=== PATIENT | female | born 1995 | race Caucasian/White ===

== ENCOUNTER 2017-02-13 07:12 | Day surgery (SDC) | payer OTHER ==
[~2017-02-13] VITALS: Ht 160 cm; Wt 60.6 kg
[2017-02-13 07:58] VITALS: Ht 160 cm; Wt 60.6 kg
[2017-02-13] MEDS ORDERED: PROPOFOL 40 ML ONE (08:27)
[2017-02-13] MEDS ORDERED: LIDOCAINE 2% (SDV) 5 ML INJ ONE (08:27)
[2017-02-13] MEDS ORDERED: MIDAZOLAM 1 MG/ML 2 ML INJ ONE (08:27)
[2017-02-13 08:40] VITALS: BP 126/78; PULSE 73; RESP 16
--- NOTE | 2017-02-13 09:21 | OPPN ---
Date/Time of Note Date/Time of Note DATE: 02/13/17 TIME: 09:19 Operative Report Preoperative Diagnosis Rectal bleeding Change in bowel habit Postoperative Diagnosis Internal hemorrhoid Operation/Procedure Performed Colonoscopy Provider: KIRK PASCUAL MD Anesthesia Type: MAC Estimated blood loss: none Transfusion Required: no Specimen: none Grafts/Implants: none Complications: no KIRK PASCUAL MD Feb 13, 2017 09:21
[2017-02-13 09:41] VITALS: BP 123/65; PULSE 72; RESP 14
--- NOTE | 2017-02-13 11:18 | GILP ---
DATE OF PROCEDURE: 02/13/2017 SURGEON: Dannielle Rogers MD. PROCEDURE PERFORMED: Colonoscopy. PREOPERATIVE DIAGNOSIS: Rectal bleeding. POSTOPERATIVE DIAGNOSES: 1. Colonoscopy all the way to the cecum. 2. Internal hemorrhoids. 3. No colitis or neoplasm was identified. INDICATION: Ms. Minoo Stafford is a 21-year-old female patient who noticed change in the bowel habits and rectal bleeding. The patient was scheduled for colonoscopy for further evaluation. The procedure and possible complications were well-explained to the patient. The patient understood and consented to the procedure. DESCRIPTION OF PROCEDURE: Under influence of anesthesia, the colonoscope was carefully introduced in the rectum. Under direct vision it was advanced all the way to the cecum. FINDINGS: The patient had internal hemorrhoids. No colitis or neoplasm was identified. The patient tolerated the procedure very well. There was no complication from the procedure. At the end of procedure she was awake with stable vital signs, and she was discharged home in care of her family. IMPRESSION: 1. Colonoscopy all the way to the cecum. 2. Internal hemorrhoids. 3. No colitis or neoplasm was identified. PLAN: Anusol HC 2.5 percent cream 4 times daily as needed. Dictated By: MD AYDE Jose/[email or web address]/[email or web address] /Document#: [id number]
== END 2017-02-13 13:27 | disposition home or self-care (01) ==
LOC: GIL 07:12
PROVIDERS: ATTEND Internal Medicine Gastroenterology
DX: R19.4 Change in bowel habit (principal); K64.8 Other hemorrhoids
CPT/HCPCS: 45378; 84703; J2250; Z7610